=== PATIENT | female | born 1965 | race African-American/Black ===

== ENCOUNTER 2019-06-14 05:33 | Emergency (ER) | payer BC, MEDICAID ==
[~2019-06-14] VITALS: Ht 167.6 cm; Wt 79.8 kg
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
--- NOTE | 2019-06-14 06:14 | NUR ---
PT TAKEN TO CT VIA [facility].
--- NOTE | 2019-06-14 06:50 | NUR ---
PT RETURNED FROM CT.
--- NOTE | 2019-06-14 07:33 | NUR ---
Patient discharged to home in stable condition. Written and verbal after care instructions given. Patient verbalizes understanding of instruction.
[2019-06-14 07:34] VITALS: BP 144/88
== END 2019-06-14 07:34 | disposition home or self-care (01) ==
LOC: ER 05:37
DX: S16.1XXA Strain of muscle, fascia and tendon at neck level, initial encounter (principal); S40.021A Contusion of right upper arm, initial encounter; I12.0 Hypertensive chronic kidney disease with stage 5 chronic kidney disease or end stage renal disease; N18.6 End stage renal disease; J45.909 Unspecified asthma, uncomplicated; K21.9 Gastro-esophageal reflux disease without esophagitis; Z99.2 Dependence on renal dialysis; Z98.890 Other specified postprocedural states; V43.52XA Car driver injured in collision with other type car in traffic accident, initial encounter; Y93.89 Activity, other specified; Y92.413 State road as the place of occurrence of the external cause; Y99.8 Other external cause status
CPT/HCPCS: 70486; 71045; 72125; 73060; 73090; 99284; L0172